=== PATIENT | female | born 2000 | race Caucasian/White ===

== ENCOUNTER 2018-01-29 00:37 | Emergency (ER) | payer OTHER ==
[2018-01-29 01:30] LABS: PLATELET COUNT 318 10^3/uL (150-400)
--- NOTE | 2018-01-29 07:54 | EDPHY ---
H & P Stated Complaint: ETOH, FALL, SUICIDAL IDEATION Time Seen by Provider: 01/29/18 02:01 HPI/ROS: HPI The patient presents with alcohol intoxication and fall hitting her head. The patient was out with friends, drinking alcohol which she know she should and have been doing. She slipped and fell backwards hitting her head on a piece of metal. She denies loss of consciousness, has no nausea, vomiting, headache, behavioral change. She does stay the for the last 2 weeks she has been feeling fairly unwell in regards to her mental health. She is feeling more hopeless than usual and has been concerned that she is manic, she has been spending a lot of money and often times feels a well and feels as if she does not need help , however she has history of OCD and picks at her skin often in the evenings which makes her feel more depressed and nearly suicidal though without any plan to hurt herself. She is not doing well in her classes, getting mostly Fs wears before she was an A-B student. She started on Prozac 40 mg in October. She was treated for UTI about 3 weeks ago and her symptoms started. She then started OCPs about 1 week ago but had to stop because she felt they were contributing to her symptoms. She has never been admitted to a psychiatric hospital. . REVIEW OF SYSTEMS 10 systems were reviewed and negative with the exception of the elements mentioned in the history of present illness. PMHx: OCD with skin picking behavior Soc Hx: Student at [employer], family lives in [place], history of alcohol use PHYSICAL General Appearance: Alert, tearful and intoxicated Eyes: Pupils equal and round no pallor or injection Head: There is a 2 cm occipital midline scalp laceration ENT, Mouth: Mucous membranes moist Respiratory: There are no retractions, lungs are clear to auscultation Cardiovascular: Regular rate and rhythm Gastrointestinal: Abdomen is soft and non-tender, no masses, bowel sounds normal Neurological: A&O, moves all extremities Skin: Warm and dry, no rashes Musculoskeletal: Neck is supple non tender Extremities: symmetrical, full range of motion Psychiatric: Patient is oriented X 3, there is no agitation Source: Patient Exam Limitations: No limitations - Personal History LMP (Females 10-55): 15-21 Days Ago Current Tetanus Diphtheria and Acellular Pertussis (TDAP): Yes - Medical/Surgical History Other PMH: OCD,DEPRESSION, ANXIETY - Social History Smoking Status: Never smoked Constitutional: Initial Vital Signs Temperature (C) 36.8 C 01/29/18 00:42 Heart Rate 85 01/29/18 00:42 Respiratory Rate 16 01/29/18 00:42 Blood Pressure 103/74 01/29/18 00:42 O2 Sat (%) 94 01/29/18 00:42 Allergies/Adverse Reactions: shrimp Allergy (Verified 01/29/18 00:41) Home Medications: Medication Instructions Recorded Prozac 10 MG (*) 01/29/18 Medical Decision Making Procedures: LACERATION REPAIR Procedure: Laceration repair. Verbal consent was obtained from the patient. The linear 2 cm laceration on the occipital scalp was anesthetized using lidocaine with epinephrine. The wound was scrubbed, draped and explored to its base with a gloved finger. There were no deep structures involved. The wound required extensive debridement . The wound was repaired with 4 jeffrey. The wound repair was simple. The procedure was performed by myself. Differential Diagnosis: 17-year-old female, college student, history of OCD on Prozac presents brought in by friends for alcohol intoxication with fall sustaining scalp laceration. She has a normal neurologic evaluation and does not have vomiting or headache, thus I believe CT scan of head is not indicated. She is complaining of suicidal thoughts over the last 2 weeks without plan does not doing well in school. Because of this she is willing to stay for a mental health evaluation in the morning. I repaired the patient's scalp laceration. She was observed here with her friends for several hours. The mental health worker came to evaluate her and thought she was suitable for discharge though does have some concerns about Prozac that she is taking. She said that she will call the patient's psychiatrist to discuss this. The patient has good follow-up at [facility]. She will be discharged home with her friends. She is now sober. - Data Points Laboratory Results: Laboratory Results 01/29/18 01:10 01/29/18 01:10 01/29/18 01/29/18 01/29/18 02:30 01:10 01:10 WBC 8.53 10^3/uL 10^3/uL (3.80-9.50) RBC 4.58 10^6/uL 10^6/uL (4.18-5.33) Hgb 13.6 g/dL g/dL (12.6-16.3) Hct 40.3 % % (38.0-47.0) MCV 88.0 fL fL (81.5-99.8) MCH 29.7 pg pg (27.9-34.1) MCHC 33.7 g/dL g/dL (32.4-36.7) RDW 13.1 % % (11.5-15.2) Plt Count 318 10^3/uL 10^3/uL (150-400) MPV 8.7 fL fL (8.7-11.7) Neut % (Auto) 51.9 % % (39.3-74.2) Lymph % (Auto) 39.2 % % (15.0-45.0) Day % (Auto) 7.2 % % (4.5-13.0) Eos % (Auto) 0.8 % % (0.6-7.6) Baso % (Auto) 0.5 % % (0.3-1.7) Nucleat RBC Rel Count 0.0 % % (0.0-0.2) Absolute Neuts (auto) 4.44 10^3/uL 10^3/uL (1.70-6.50) Absolute Lymphs (auto) 3.34 10^3/uL H 10^3/uL (1.00-3.00) Absolute Monos (auto) 0.61 10^3/uL 10^3/uL (0.30-0.80) Absolute Eos (auto) 0.07 10^3/uL 10^3/uL (0.03-0.40) Absolute Basos (auto) 0.04 10^3/uL 10^3/uL (0.02-0.10) Absolute Nucleated RBC 0.00 10^3/uL 10^3/uL (0-0.01) Immature Gran % 0.4 % % (0.0-1.1) Immature Gran # 0.03 10^3/uL 10^3/uL (0.00-0.10) Sodium 142 mEq/L mEq/L (135-145) Potassium 3.5 mEq/L mEq/L (3.3-5.0) Chloride 104 mEq/L mEq/L (97-110) Carbon Dioxide 26 mEq/l mEq/l (22-31) Anion Gap 12 mEq/L mEq/L (8-16) BUN 11 mg/dL mg/dL (7-23) Creatinine 0.9 mg/dL mg/dL (0.6-1.0) Estimated GFR > 60 Glucose 112 mg/dL H mg/dL (70-100) Calcium 9.1 mg/dL mg/dL (8.5-10.4) Beta HCG, Quant < 2.39 mIU/mL mIU/mL (0.00-4.83) Urine Opiates Screen NEGATIVE (NEGATIVE) Urine Barbiturates NEGATIVE (NEGATIVE) Ur Phencyclidine Scrn NEGATIVE (NEGATIVE) Ur Amphetamine Screen NEGATIVE (NEGATIVE) U Benzodiazepines Scrn NEGATIVE (NEGATIVE) Urine Cocaine Screen NEGATIVE (NEGATIVE) U Marijuana (THC) Screen NEGATIVE (NEGATIVE) Ethyl Alcohol 204 mg/dL H mg/dL (0-10) Departure - Departure Disposition: Home, Routine, Self-Care Clinical Impression: Scalp laceration Qualifiers: Encounter type: initial encounter Qualified Code(s): S01.01XA - Laceration without foreign body of scalp, initial encounter Alcohol intoxication Qualifiers: Complication of substance-induced condition: with delirium Qualified Code(s): F10.921 - Alcohol use, unspecified with intoxication delirium OCD (obsessive compulsive disorder) Qualifiers: Obsessive-compulsive disorder type: unspecified Qualified Code(s): F42.9 - Obsessive-compulsive disorder, unspecified Instructions: Laceration (ED), Staple Care (ED) Additional Instructions: The jeffrey in your head should be removed in 10 days on February 08. You can return to the emergency department for this or follow up at [facility]. You should return to the emergency department if your worse in any way. Referrals: [facility],. [Clinic] - As per Instructions
[2018-01-29 08:03] VITALS: BP 120/70
--- NOTE | 2018-01-29 09:44 | ASMTTCLDSP ---
TLC Discharge Disposition Disposition: Answers: Discharge If Answers: Yes DISCHARGED: Patient/family given suicide hotline info & SAMHSA brochure? Disposition Notes: Notes: Pt stated that she intended to be safe at home. Her friend, Shanta, agreed to stay with her through the night. Pt agreed to contact [facility] on Tuesday to request a medication consultation with a psychiatrist. Pt agreed to allowing this clinician to contact [facility], inform them of her mental health assessment and provide her phone number so that they can contact her to set up an appt with a psychiatrist. Pt has an appt with a therapist at [facility] scheduled in 2 weeks. Pt agreed to return to her group therapy this coming . Pt has used [facility]'s crisis walk-in clinic and will use it again if needed. Discharge Concerns/Recommendations: Notes: In consultation with [facility] ED physician,Dr Hand, it was concurred that Pt does not appear to meet 27-65 criteria requiring psychiatric hospitalization as Pt does not appear to be an imminent risk of harm to self/others/due to grave disability due to a mental illness condition. Date Signed: 01/29/2018 09:43 AM Electronically Signed By:Kemi Ace
--- NOTE | 2018-01-29 09:46 | ASMTTLCEVL ---
TLC Evaluation - Basic Information Evaluation Start Date and 01/29/2018 06:10 AM Time Hospital Status Answers: Voluntary Patient statement Notes: "I was doing fine until I had a UTI; I got the UTI after Ihad sex and went on antibiotics. I was on control for just about 1 1/2 weeks because my anxiety increased, my dermatillomania (picking of the skin) increased and I had suicidal thoughts". Narrative Notes: Pt is a 17 y/o female, [employer] student who came to the ED with alcohol intoxication and a fall hitting her head. Her BAL was 204. Her scalp was lacerated and required 4 jeffrey. Per ED physician's report, "She does say that for the last 2 weeks she has been feeling fairly unwell in regards to her mental health. She is feeling more hopeless than usual and has been concerned that she is manic; she has been spending a lot of money. When clinician entered her room pt was in bed asleep; a friend of hers was sleeping on the floor. Pt is thin and with multiple small wounds on her face. Pt presented as depressed with periods of crying. Her affect was congruent with her mood and the subject being discussed however, so that there were times she would be sharing something that made her happy and her face would brighten. She was very talkative, but speech was not presured, she was linear in her thinking and redirectable. She was able to focus. 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 The dermatillomania was preceded by biting at her nails. She mostly picks at her face and legs. This causes wounds which cause additional stress. In addition to these conditions, pt states she was anorexic in middle school, "I enjoyed the feeling of my stomach growling when it needed food". She is presently mildly concerned that her anorexia is recurring as she realizes that she is not eating enough calories. Pt recalls multiple losses and stressors on her family that began in middle school. These losses of family members include her paternal grandparents whom she was very close to and a friend who, in high school, was murdered by her father. While pt recalls these events she sobs; she recalls them multiple times during the assessment and sobs each time. Pt denies any SI present during these years. She does recall taking AP classes where she earned A's and B's by working hard and involvement in multiple activities. She believes that she did this so to not allow herself time to process lossess and stress. She first recalls SI during her first semester at , in December, when her roomate was away several weekends. At these times her depression would deepen and she would think of ways that she could kill herself. At these times she was also self-deprecationg. She struggled to learn new material, sometimes needing to read material several times. She pursued counselling at [facility] in April, seeing both an individual therapist and participating in a group through the end of the school year. She did not experience SI over this period of time. She relays multiple issues she had always had with her parents, "feeling pressured to perform.. they're not understanding me..not trusting my ability to make responsible decisions" and this past summer had 2 family therapy sessions which had a positive impact on their relationship. It was the psychiatrist that saw her family that prescribed her Prozac.She is presently prescribed 40mg and per pt, the psychiatrist told her she would not benefit from it until it was 80mg. Several weeks ago, when just beginning control and approx 6 weeks after starting the Prozac she began to experience deep mood swings. She had days of feeling deeply depressed, choosing to stay in bed and not attend school followed by periods of manic like activity when she "made strange decisions" like having sex with a close friend, "spending a lot of money" and almost buying a puppy. At these manic-like times she felt very happy and positive; her schoolwork came to her easily, she was organized and accomplished things. She began to have daily and continual thoughts of suicide . She stopped taking the control after 1 1/2 weeks, but her concerning mental health symptoms continued. She expresses great distress at not understanding what is happening with her. She continues to have intrusive thoughts of suicide, but stated very clearly that she has never acted on them and has no intent of acting on them..."I have too much to live for...I couldn't do that to the people that care about me". Pt believes that her heavier drinking is purposely done to escape as her overcommitting was a way to manage stress in highschool. Diagnosis History Notes: Pt states a past of depression, anxiety, OCD, dermatillomania and anorexia. Prior suicide attempts Notes: Pt denies. Prior hospitalizations Notes: Pt denies. Treatment Responses Notes: Pt's response to Prozac is unclear. It is possible that the Prozac is contributing to mood swings and suicidal ideation. Pt likes the days when she feels bright, energetic and accomplished and worries that this will stop if she stops the Prozac. History of violence Notes: Pt denies. Therapist: cristina Harden in 2 weeks. Psychiatrist: Psych in [place] Medications (name, dosage, route, freq uency) Notes: Prozac, 40mg Allergies/Reaction Notes: Shrimp Sleep Notes: Approx 8 hours Appetite Notes: A lot of weight fluctuations during adolescence. She believes she should be eating more calories than she presently is. Hx of anorexia. Medical/Surgical history Notes: None known. Substance use history (frequency, intensity, his tory, duration) Notes: Alcohol - When socializing 2-3 mixed drinks. 1 other incident this school year of heavy drinking. her BAL in ED was 204. Family composition Notes: Both parents living. A sister 3 y/older. Pt describes she and her sister as being very different with her sister "being like an adult..perfect.. good grades..wants to be an ER doctor". Sisters love each other, but are very dissimilar. Pt states she more like her PGM than her her parents and her sister is more like her parents. Need for family Answers: No participation in patient's care Family psychiatric/substance abuse history Notes: PGM may have picked at her skin and gone through what her father described as a "crazy period". Developmental history Notes: Pt did well in school. No hx of abuse. Multiple losses beginning in middle school. Abuse concerns Answers: None Marital status/children Notes: None Living situation Notes: Pt lives in an apt with 2 roomates. Sexual history/orientation Notes: Heterosexual. First time having intercourse this school term. Pt felt good about the experience. Peer support/family strengths Notes: Pt reports multiple friends including Shanta, who has stayed with her throughout the night. Education level/history Notes: Pt is in her second year at ; she is in the business school. 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 Notes: Pt denies. Legal Notes: Pt denies Cheondoism/Spiritual Notes: Pt denies. Leisure Notes: Adventures...getting icecream, going up to [place]. Painting, socializing, enjoys learning. Collateral Notes: Friend - Shanta Patient's strengths Answers: Artistic/Creative/Musical (Please select at least TWO strengths): Good Friend to Others Honest Insightful Intelligent [place] Motivated for Treatment Responsible/Dependable Supportive Family Willingness TLC Evaluation - Mental Status Exam Appearance: Answers: Appropriate Disheveled Eye Contact: Answers: Good/Direct Mood: Answers: Depressed Sad Affect: Answers: Appropriate Calm Congruent w/ Mood Sad Tearful Behavior: Answers: Appropriate Cooperative Crying Speech: Answers: Relevant Logical Clear Coherent Thought Process: Answers: Organized Oriented Alert Insight: Answers: Fair Judgement: Answers: Fair Manic Signs/Symptoms Answers: Impulsivity Spending Sprees Depression Answers: Crying Spells Signs/Symptoms: Diminished Interest Sad Mood Worthlessness Anxiety Signs/Symptoms Answers: Obsessive/Compulsive Thoughts/Behavior Hallucinations: Answers: None Current Stage of Change Answers: Precontemplation Pt reported to have Answers: Yes suicidal/self-injuring ideation/behavior? Pt reported to be making Answers: No suicidal/self-injuring threats? Pt reported to have Answers: No aggression/assault ideation/behavior? Pt reported to be making Answers: No aggression/assault threats? Pt exhibits inability to Answers: No care for self/grave disability? Ideation/behavior is Answers: No chronic? Patient has a specific Answers: No plan? Ideation involves Answers: No serious/lethal intent? Ideation has Answers: No delusional/hallucinatory content? History of Answers: Yes suicidal/self-injuring ideation, behavior, or threats? History of Answers: No aggressive/assaultive ideation, behavior, or threats? History of serious Answers: No physical harm to self/others while in treatment setting? TLC Evaluation - Suicide/Homicide Risk Suicide Risk Factors: Answers: < 20 or > 40 Years of Age Alcohol/Heavy Drug Use Impulsivity Rapid Mood Shifts Homicide/violence risk Answers: None factors: Current Suicidal Answers: Yes Ideation? Current Suicide Ideation Ongoing for last 3 weeks Frequency: Current Suicidal Ideation Answers: Yes in the Past 48 Hours? Current Suicidal Ideation Answers: Yes in the Past Month? Current Suicidal Answers: Yes Ideation, Worst Ever? Suicide Internal Answers: Absence of Psychosis Protective Factors: Suicide External Answers: Social Support Protective Factors: Ranking of patient's Answers: Low suicidal risk: Ranking of patient's Answers: Low homicidal risk: TLC Evaluation - Wrap-up BDI Total Score: 34 BDI Question #2 Score: 3 BDI Question #9 Score: 1 BSS Total Score: 18 AXIS I Diagnosis (include DSM-V and ICD-10 codes), must also be entered in [employer], which is the source of truth. 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 In consultation with [facility] ED physician,Dr Hand, it was concurred that Pt does not appear to meet 27-65 criteria requiring psychiatric hospitalization as Pt does not appear to be an imminent risk of harm to self/others/due to grave disability due to a mental illness condition. Evaluation End Date and 01/29/2018 09:35 AM Time (HH:SYED): Date Signed: 01/29/2018 09:45 AM Electronically Signed By:Kemi Ace
== END 2018-01-29 08:01 | disposition home or self-care (01) ==
PROC: 0HQ0XZZ Repair Scalp Skin, External Approach (ICD-10-PCS; principal; 2018-01-29)
DX: S01.01XA Laceration without foreign body of scalp, initial encounter (principal); F10.921 Alcohol use, unspecified with intoxication delirium; F42.9 Obsessive-compulsive disorder, unspecified; W01.198A Fall on same level from slipping, tripping and stumbling with subsequent striking against other object, initial encounter; Y92.9 Unspecified place or not applicable
CPT/HCPCS: 80305; G0480